=== PATIENT | female | born 1985 | race Caucasian/White ===

== ENCOUNTER 2017-06-17 15:20 | Emergency (ER) | payer OTHER ==
[2017-06-17 15:41] VITALS: BP 141/78; PULSE 74; RESP 18; TEMP 99.4
--- NOTE | 2017-06-17 16:04 | ED ---
Lower Extremity Injury HPI - General Chief Complaint: Extremity Injury, Lower Stated Complaint: Sunburn Time Seen by Provider: 06/17/17 15:45 Source: patient, RN notes reviewed Mode of arrival: ambulatory - History of Present Illness Initial Comments: 31-year-old female presents emergency Department chief complaint sunburn. Patient states she went down on the floor down and states that [place] on [place] 6 hours. Patient states she's had some screening her but she has severe casillas to her legs. Patient states her legs are swollen. Patient states that she has not noted any severe blister but states it is very red. She has been using aloe [id number] no other medications. Patient denies any fever or chills. Patient states that she cannot work because of pain. Patient denies any other areas of burning on the legs. - Related Data Previous Rx's Medication Instructions Recorded Amoxicillin 500 mg PO Q8H #30 capsule 04/04/15 Hydrocodone/Acetaminophen [[place] 1 tab PO Q6HR PRN #10 tab 06/17/17 5-325] Ibuprofen [Motrin] 600 mg PO Q8HR PRN #30 tab 06/17/17 Allergies Allergy/AdvReac Type Severity Reaction Status Date / Time codeine phosphate Allergy Unknown Rash/Hives Verified 06/17/17 15:41 [From Tylenol-Codeine #3] latex Allergy Unknown Rash/Hives Verified 06/17/17 15:41 codeine Allergy Rash/Hives Verified 06/17/17 15:41 Review of Systems ROS Statement: Those systems with pertinent positive or pertinent negative responses have been documented in the HPI. ROS Other: All systems not noted in ROS Statement are negative. Past Medical History Past Medical History: No Reported History Additional Past Medical History / Comment(s): Tennis Elbow History of Any Multi-Drug Resistant Organisms: None Reported Past Surgical History: Appendectomy, Cholecystectomy, Hysterectomy, Tubal Ligation Additional Past Surgical History / Comment(s): tubal Past Psychological History: No Psychological Hx Reported Smoking Status: Former smoker Past Alcohol Use History: Occasional Past Drug Use History: None Reported General Exam General appearance: alert, in no apparent distress Respiratory exam: Present: normal lung sounds bilaterally. Absent: respiratory distress, wheezes, rales, rhonchi, stridor Cardiovascular Exam: Present: regular rate, normal rhythm, normal heart sounds. Absent: systolic murmur, diastolic murmur, rubs, gallop, clicks Skin exam: Present: warm, dry, intact, normal color, other (Extensive first- degree burn on the anterior surface of the lower legs from the proximal thighs of the ankles no blistering noted). Absent: rash Course Vital Signs 06/17/17 15:35 Temperature 99.4 F Pulse Rate 74 Respiratory 18 Rate Blood Pressure 141/78 O2 Sat by Pulse 99 Oximetry Medical Decision Making - Medical Decision Making 29-year-old female presented for prescribed casillas of bilateral lower extremity swelling. Patient is advised of the treatment is ibuprofen and continue with gentle motion. Patient said that she cannot tolerate the pain. Patient will be given a short course of narcotic pain medication. Patient does have an ALLERGY codeine but states that she has taken the pain medication the past. Disposition Clinical Impression: First degree sunburn Disposition: HOME SELF-CARE Condition: Stable Instructions: Sunburn (ED) Additional Instructions: Please return to the Emergency Department if symptoms worsen or any other concerns. Prescriptions: Hydrocodone/Acetaminophen [[place] 5-325] 1 tab PO Q6HR PRN #10 tab PRN Reason: Pain Ibuprofen [Motrin] 600 mg PO Q8HR PRN #30 tab PRN Reason: Pain Referrals: Bryant Wagner Jr, [Primary Care Provider] - 1-2 days Time of Disposition: 16:04
== END 2017-06-17 16:05 | disposition home or self-care (01) ==
LOC: EC 15:20
DX: L55.0 Sunburn of first degree (principal); Z87.891 Personal history of nicotine dependence; Z88.5 Allergy status to narcotic agent; Z91.040 Latex allergy status
CPT/HCPCS: 99283

== ENCOUNTER 2018-02-23 09:14 | Emergency (ER) | payer OTHER ==
[2018-02-23 09:29] VITALS: RESP 18
[2018-02-23] MEDS ORDERED: SODIUM CHLORIDE 0.9% 2,000 ML IV STA (10:01)
[2018-02-23] MEDS ORDERED: ONDANSETRON 4 MG/2 ML VIAL IVP STA (10:06)
--- NOTE | 2018-02-23 10:13 | ED ---
Nausea/Vomiting/Diarrhea HPI - General Chief complaint: Nausea/Vomiting/Diarrhea Stated complaint: Diarrhea Time Seen by Provider: 02/23/18 09:52 Source: patient, old records reviewed Mode of arrival: ambulatory Limitations: no limitations - History of Present Illness Initial comments: This a 32-year-old female presents emergency Department chief complaint of nausea vomiting diarrhea. Patient states this started late last night early this morning. Patient states symptoms have been continuous of nausea vomiting diarrhea. She denies any melena, hematochezia or hematemesis Denies any fever or chills. Denies any vomiting states she's has mild cramping. No chest pain or shortness of breath. Denies any contacts with some her symptoms. She states it started after eating out at a restaurant last night. Patient's prior cholecystectomy, appendectomy and hysterectomy. Denies any dysuria no hematuria. - Related Data Home Medications Medication Instructions Recorded Confirmed buPROPion XL [Wellbutrin Xl] 150 mg PO DAILY 02/23/18 02/23/18 Allergies Allergy/AdvReac Type Severity Reaction Status Date / Time codeine phosphate Allergy Unknown Rash/Hives Verified 02/23/18 10:30 [From Tylenol-Codeine #3] latex Allergy Unknown Rash/Hives Verified 02/23/18 10:30 codeine Allergy Rash/Hives Verified 02/23/18 10:30 Review of Systems ROS Statement: Those systems with pertinent positive or pertinent negative responses have been documented in the HPI. ROS Other: All systems not noted in ROS Statement are negative. Past Medical History Past Medical History: No Reported History Additional Past Medical History / Comment(s): Tennis Elbow History of Any Multi-Drug Resistant Organisms: None Reported Past Surgical History: Appendectomy, Cholecystectomy, Hysterectomy, Tubal Ligation Additional Past Surgical History / Comment(s): tubal Past Psychological History: No Psychological Hx Reported Smoking Status: Former smoker Past Alcohol Use History: Occasional Past Drug Use History: None Reported General Exam Limitations: no limitations General appearance: alert, in no apparent distress Head exam: Present: atraumatic, normocephalic, normal inspection Eye exam: Present: normal appearance, PERRL, EOMI. Absent: scleral icterus, conjunctival injection, periorbital swelling ENT exam: Present: normal exam, normal oropharynx, mucous membranes moist Neck exam: Present: normal inspection. Absent: tenderness, meningismus, lymphadenopathy Respiratory exam: Present: normal lung sounds bilaterally. Absent: respiratory distress, wheezes, rales, rhonchi, stridor Cardiovascular Exam: Present: normal rhythm, tachycardia, normal heart sounds. Absent: systolic murmur, diastolic murmur, rubs, gallop, clicks GI/Abdominal exam: Present: soft, normal bowel sounds. Absent: distended, tenderness, guarding, rebound, rigid Neurological exam: Present: alert, oriented X3, CN II-XII intact Skin exam: Present: warm, dry, intact, normal color. Absent: rash Course Vital Signs 02/23/18 09:28 Temperature 98.4 F Pulse Rate 112 H Respiratory 18 Rate Blood Pressure 130/75 O2 Sat by Pulse 99 Oximetry Medical Decision Making - Medical Decision Making 32-year-old female presented to ER for nausea vomiting diarrhea. Patient was hydrated with 2 L of fluid. Patient is shown have mild dehydration. Symptoms are consistent with gastroenteritis. Patient discharged with Zofran return parameters discussed. - Lab Data Result diagrams: 02/23/18 10:45 02/23/18 10:45 Lab Results 02/23/18 02/23/18 02/23/18 Range/Units 10:45 10:45 11:45 WBC 11.6 H (3.8-10.6) k/uL RBC 4.93 (3.80-5.40) m/uL Hgb 14.9 (11.4-16.0) gm/dL Hct 44.1 (34.0-46.0) % MCV 89.4 (80.0-100.0) fL MCH 30.2 (25.0-35.0) pg MCHC 33.8 (31.0-37.0) g/dL RDW 12.7 (11.5-15.5) % Plt Count 186 (150-450) k/uL Neutrophils % 90 % Lymphocytes % 3 % Monocytes % 4 % Eosinophils % 2 % Basophils % 0 % Neutrophils # 10.5 H (1.3-7.7) k/uL Lymphocytes # 0.3 L (1.0-4.8) k/uL Monocytes # 0.5 (0-1.0) k/uL Eosinophils # 0.3 (0-0.7) k/uL Basophils # 0.0 (0-0.2) k/uL Sodium 140 (137-145) mmol/L Potassium 4.0 (3.5-5.1) mmol/L Chloride 103 (98-107) mmol/L Carbon Dioxide 23 (22-30) mmol/L Anion Gap 14 mmol/L BUN 15 (7-17) mg/dL Creatinine 0.67 (0.52-1.04) mg/dL Est GFR (CKD-EPI)AfAm >90 (>60 ml/min/1.73 sqM) Est GFR (CKD-EPI)NonAf >90 (>60 ml/min/1.73 sqM) Glucose 115 H (74-99) mg/dL Calcium 9.0 (8.4-10.2) mg/dL Total Bilirubin 0.9 (0.2-1.3) mg/dL AST 18 (14-36) U/L ALT 31 (9-52) U/L Alkaline Phosphatase 47 (38-126) U/L Total Protein 6.9 (6.3-8.2) g/dL Albumin 4.2 (3.5-5.0) g/dL Amylase 51 (30-110) U/L Lipase 59 (23-300) U/L Urine Color Yellow Urine Appearance Clear (Clear) Urine pH 5.5 (5.0-8.0) Ur Specific [place] 1.023 (1.001-1.035) Urine Protein Trace H (Negative) Urine Glucose (UA) Negative (Negative) Urine Ketones 3+ H (Negative) Urine Blood Negative (Negative) Urine Nitrite Negative (Negative) Urine Bilirubin Negative (Negative) Urine Urobilinogen <2.0 (<2.0) mg/dL Ur Leukocyte Esterase Negative (Negative) Disposition Clinical Impression: Dehydration, Gastroenteritis Disposition: HOME SELF-CARE Condition: Stable Instructions: Gastroenteritis (ED) Additional Instructions: Please return to the Emergency Department if symptoms worsen or any other concerns. Is patient prescribed a controlled substance at d/c from ED?: No Referrals: Bryant Wagner Jr, DO [Primary Care Provider] - 1-2 days Time of Disposition: 12:18
[2018-02-23] MEDS ORDERED: KETOROLAC 30 MG/ML 1 ML VIAL IVP STA (10:52)
[2018-02-23 11:01] LABS: Basophils % (A) 0 %; Eosinophils # (A) 0.3 k/uL (0-0.7); Eosinophils % (A) 2 %; HCT 44.1 % (34.0-46.0); HGB 14.9 gm/dL (11.4-16.0); Lymphocytes # (A) 0.3 k/uL (1.0-4.8); Lymphocytes % (A) 3 %; MCH 30.2 pg (25.0-35.0); MCHC 33.8 g/dL (31.0-37.0); MCV 89.4 fL (80.0-100.0); Mean Platelet Volume 8.5; Monocytes # (A) 0.5 k/uL (0-1.0); Monocytes % (A) 4 %; Neutrophils # (A) 10.5 k/uL (1.3-7.7); Neutrophils % (A) 90 %; Platelet Count 186 k/uL (150-450); RBC 4.93 m/uL (3.80-5.40); RDW 12.7 % (11.5-15.5); WBC 11.6 k/uL (3.8-10.6)
[2018-02-23 11:10] LABS: ALT 31 U/L (9-52); AST 18 U/L (14-36); Albumin 4.2 g/dL (3.5-5.0); Alkaline Phosphatase 47 U/L (38-126); Amylase 51 U/L (30-110); Anion Gap 14 mmol/L; Blood Urea Nitrogen 15 mg/dL (7-17); Carbon Dioxide 23 mmol/L (22-30); Chloride 103 mmol/L (98-107); Glucose 115 mg/dL (74-99); Lipase 59 U/L (23-300); Sodium 140 mmol/L (137-145); Total Bilirubin 0.9 mg/dL (0.2-1.3); Total Protein 6.9 g/dL (6.3-8.2)
[2018-02-23 12:09] LABS: Appearance,Urine Clear (Clear); Bilirubin,Urine Negative (Negative); Blood,Urine Negative (Negative); Color,Urine Yellow; Glucose,Urine (UA) Negative (Negative); Ketones,Urine 3+ (Negative); Leukocyte Esterase,Urine Negative (Negative); Nitrite,Urine Negative (Negative); PH, Urine 5.5 (5.0-8.0); Protein,Urine Trace (Negative); Specific Gravity,Urine 1.023 (1.001-1.035); Urobilinogen,Urine <2.0 mg/dL (<2.0)
[2018-02-23 13:06] VITALS: BP 102/55; PULSE 84; TEMP 97.6
== END 2018-02-23 13:06 | disposition home or self-care (01) ==
LOC: EC 09:14
DX: K52.9 Noninfective gastroenteritis and colitis, unspecified (principal); E86.0 Dehydration; Z87.891 Personal history of nicotine dependence; Z90.49 Acquired absence of other specified parts of digestive tract; Z90.710 Acquired absence of both cervix and uterus; Z98.51 Tubal ligation status; Z79.899 Other long term (current) drug therapy; Z88.5 Allergy status to narcotic agent; Z91.040 Latex allergy status
CPT/HCPCS: 36415; 80053; 82150; 83690; 85025; 81003; 99284; 96374; 96375; 96361; J2405; J1885

== ENCOUNTER → 2018-03-05 | Outpatient (CLI) | payer OTHER ==
[2018-03-05 14:30] VITALS: BP 114/78; PULSE 99; RESP 20; TEMP 98.6; BMI 35.7
--- NOTE | 2018-03-05 14:34 | P.HPBAR ---
Bariatric H&P - History & Physicial H&P Date: 03/05/18 History & Physicial: Visit/CC: pursuing sleeve Patient initial contact: Initial weight: 87.18 kg Initial weight in pounds: 192.20 Height: 5 ft 1.5 in Initial BMI: 35.7 Last weight: Current weight: 87.18 kg Current weight in pounds: 192.20 Current BMI: 35.7 [place] body weight (based on NIH guidelines): 48.761 kg Excess body weight loss: 0.0% The patient is a 32 year-old F who presents for Bariatric Assessment. Patient seen today as a new patient for bariatric evaluation. She went to her recent seminar put on by Dr. Maldonado in September of last year. She is interested in sleeve gastrectomy. She has completed her 6 month supervised weight loss. Her heaviest weight was 235. She is currently 192 with a BMI of 35.7. Patient complains of reflux. She also complains of intermittent shortness of breath and depression related to her obesity. No complicating surgical history. Denies dysphagia or DVT. She is a nonsmoker. Review of Systems The patient denies any acute changes in vision or hearing, no dysphagia or odynophagia, no chest pain or shortness of breath, no dysuria or hematuria, no headache, no runny nose, no rectal bleeding or melena, no unexplained weight loss Past Medical History Past Medical History: No Reported History Additional Past Medical History / Comment(s): Tennis Elbow History of Any Multi-Drug Resistant Organisms: None Reported Past Surgical History: Appendectomy, Cholecystectomy, Hysterectomy, Tubal Ligation Additional Past Surgical History / Comment(s): tubal Past Psychological History: No Psychological Hx Reported Smoking Status: Former smoker Past Alcohol Use History: Occasional Past Drug Use History: None Reported Surgical - Exam Vital Signs Temp Pulse Resp BP 98.6 F 99 20 114/78 03/05/18 14:13 03/05/18 14:13 03/05/18 14:13 03/05/18 14:13 Physical exam: General: Well-developed, well-nourished HEENT: Normocephalic, sclerae nonicteric Abdomen: Nontender, nondistended Extremities: No edema Neuro: Alert and oriented Bariatric Assessment & Plan (1) Morbid obesity Narrative/Plan: Patient has been considering sleeve gastrectomy for quite some time. The patient's weight is borderline at 35.7 BMI. The risks, benefits, and expected weight loss with the bariatric procedures were discussed in detail. We'll tentatively move forward with plans for sleeve gastrectomy. We'll schedule for upcoming upper endoscopy. A await psychiatric evaluation and PCP letter. Status: Acute Bariatric Checklist Checklist: Plan: Checklist: EGD: 1. Hiatal hernia: 2. H. Pylori: HgbA1c: Vitamin D: Smoking: Former smoker Primary care physician referral: Dr Wagner Psychiatry clearance: Cardiology clearance: Sleep study: Diet journal: VTE risk score: VTE risk level: Rehab needs at discharge:
== END | disposition home or self-care (01) ==
LOC: BARWHC3 14:00
PROVIDERS: ATTEND Surgery
DX: E66.01 Morbid (severe) obesity due to excess calories (principal); Z68.35 Body mass index [BMI] 35.0-35.9, adult; Z87.891 Personal history of nicotine dependence
CPT/HCPCS: 99201

== ENCOUNTER → 2018-04-27 | Outpatient (CLI) | payer OTHER ==
[2018-04-27 15:04] LABS: HCT 42.8 % (34.0-46.0); HGB 14.2 gm/dL (11.4-16.0); MCH 30.8 pg (25.0-35.0); MCHC 33.1 g/dL (31.0-37.0); MCV 93.1 fL (80.0-100.0); Mean Platelet Volume 7.5; Platelet Count 227 k/uL (150-450); RDW 12.9 % (11.5-15.5); WBC 5.9 k/uL (3.8-10.6)
[2018-04-27 15:21] LABS: ALT 30 U/L (9-52); AST 15 U/L (14-36); Albumin 3.9 g/dL (3.5-5.0); Alkaline Phosphatase 42 U/L (38-126); Anion Gap 9 mmol/L; Blood Urea Nitrogen 12 mg/dL (7-17); Carbon Dioxide 28 mmol/L (22-30); Chloride 103 mmol/L (98-107); Glucose 72 mg/dL (74-99); Potassium 4.2 mmol/L (3.5-5.1); Sodium 140 mmol/L (137-145); Total Bilirubin 0.2 mg/dL (0.2-1.3); Total Protein 6.6 g/dL (6.3-8.2)
[2018-04-27 15:35] LABS: T4, Free (Free Thyroxine) 0.89 ng/dL (0.78-2.19)
[2018-04-27 18:45] LABS: Vitamin D 25 Hydroxy 27.4 ng/mL (30.0-100.0)
[2018-04-27 18:54] LABS: Folate, Serum 12.3 ng/mL
[2018-04-27 21:31] LABS: Hemoglobin A1C 4.8 % (4.0-6.0)
== END | disposition home or self-care (01) ==
LOC: LABWHC1 14:35
PROVIDERS: ATTEND Surgery
DX: E55.9 Vitamin D deficiency, unspecified (principal); F41.1 Generalized anxiety disorder; K90.89 Other intestinal malabsorption; E66.01 Morbid (severe) obesity due to excess calories
CPT/HCPCS: 36415; 80053; 82306; 82607; 82746; 83036; 83540; 84425; 84439; 84443; 85027; 93005

== ENCOUNTER → 2019-03-09 | Outpatient (CLI) | payer OTHER ==
[2019-03-09 14:21] VITALS: BP 113/82; PULSE 105; RESP 16; TEMP 98.7; BMI 37.3
--- NOTE | 2019-03-09 14:52 | P.BASOAP ---
Subjective Progress Note Date: 03/09/19 Principal diagnosis: Morbid obesity Patient last seen in February of last year. Patient apparently had a lot of expenses last year and decided not to have her sleeve gastrectomy because of the time it would require away from work. Since that time the patient has gained 10 pounds. She has not had her preoperative upper endoscopy done thus far. No changes to her history and physical. Objective - Vital Signs Vital signs: Vital Signs Temp 98.7 F 03/09/19 14:17 Pulse 105 H 03/09/19 14:17 Resp 16 03/09/19 14:17 BP 113/82 03/09/19 14:17 Pulse Ox Intake & Output 03/08/19 03/09/19 03/09/19 18:59 06:59 18:59 Weight 91.172 kg - Exam Abdomen: Soft, nontender, nondistended Assessment/Plan (1) Morbid obesity Narrative/Plan: We'll plan preoperative upper endoscopy. I did review the surgical consent form in detail with the patient. All questions answered. Patient is interested in proceeding with sleeve gastrectomy in the near future. We'll tentatively plan April. Preoperative lab work ordered. Plan: Date: 03/09/19 Initial Weight: 87.18 kg Initial BMI: 35.7 Current Weight: 91.172 kg Current BMI: 37.3 Type of Surgery: Total Volume in Band: Previous Volume: Volume Removed: Volume Added: Band Size:
== END | disposition home or self-care (01) ==
LOC: BARWHC3 13:51
PROVIDERS: ATTEND Surgery
DX: E66.01 Morbid (severe) obesity due to excess calories (principal); Z68.37 Body mass index [BMI] 37.0-37.9, adult
CPT/HCPCS: 99211

== ENCOUNTER → 2019-03-12 | Outpatient (CLI) | payer OTHER ==
[2019-03-12 12:07] LABS: HCT 41.8 % (34.0-46.0); HGB 14.3 gm/dL (11.4-16.0); MCH 31.4 pg (25.0-35.0); MCHC 34.3 g/dL (31.0-37.0); MCV 91.5 fL (80.0-100.0); Mean Platelet Volume 8.3; Platelet Count 221 k/uL (150-450); RBC 4.57 m/uL (3.80-5.40); RDW 13.6 % (11.5-15.5); WBC 7.2 k/uL (3.8-10.6)
[2019-03-12 18:55] LABS: Iron Saturation 20.39 (12.00-45.00)
[2019-03-12 18:58] LABS: Albumin 4.4 g/dL (3.80-4.90); Albumin/Globulin Ratio 1.91 (1.60-3.17); Anion Gap 8.6 mmol/L (4.00-12.00); Calcium 9.4 mg/dL (8.7-10.3); Carbon Dioxide 26.4 mmol/L (21.6-31.8); Globulin 2.3 g/dL (1.6-3.3); Potassium 4.2 mmol/L (3.5-5.5); Total Bilirubin 0.5 mg/dL (0.2-1.2); Total Protein 6.7 g/dL (6.2-8.2)
[2019-03-12 19:05] LABS: Vitamin D 25 Hydroxy 57.8 ng/mL (30.0-100.0)
== END | disposition home or self-care (01) ==
LOC: LABWHC1 10:56
PROVIDERS: ATTEND Surgery
DX: D50.8 Other iron deficiency anemias (principal); E55.9 Vitamin D deficiency, unspecified; E66.01 Morbid (severe) obesity due to excess calories
CPT/HCPCS: 36415; 80053; 82306; 82607; 83540; 83550; 84425; 85027

== ENCOUNTER 2019-03-24 11:18 | Day surgery (SDC) | payer OTHER ==
[2019-03-18 15:58] VITALS: BMI 36.4
[~2019-03-24 11:18] MED LIST: LACTATED RINGERS 1,000 ML IV SCH; LIDOCAINE 1% 20 ML VIAL (10MG/ML) FOR IV START INTRADERMA PRN
[2019-03-24 11:35] VITALS: RESP 16; TEMP 97.4
[2019-03-24] MEDS ORDERED: PROPOFOL 10 MG/ML 20 ML VIAL IV ONE (12:56)
[2019-03-24] MEDS ORDERED: LIDOCAINE 1% INJ 10MG/ML (20 ML MDV) ONE (12:56)
--- NOTE | 2019-03-24 12:58 | P.GSHP ---
History of Present Illness H&P Date: 03/24/19 Chief Complaint: GERD Patient here today for upper endoscopy. Patient has mild reflux. Being worked up for sleeve gastrectomy as well. No dysphagia. Past Medical History Past Medical History: No Reported History Additional Past Medical History / Comment(s): hx of Tennis Elbow History of Any Multi-Drug Resistant Organisms: None Reported Past Surgical History: Appendectomy, Cholecystectomy, Hysterectomy, Tubal Ligation, Uterine Ablation Additional Past Surgical History / Comment(s): tubal Past Anesthesia/Blood Transfusion Reactions: No Reported Reaction Smoking Status: Former smoker Medications and Allergies Home Medications Medication Instructions Recorded Confirmed Type buPROPion XL [Wellbutrin Xl] 150 mg PO BID 02/23/18 03/24/19 History Cetirizine HCl [Zyrtec] 10 mg PO DAILY 03/18/19 03/24/19 History Phentermine HCl [Adipex-P] 37.5 mg PO DAILY 03/18/19 03/24/19 History Allergies Allergy/AdvReac Type Severity Reaction Status Date / Time codeine phosphate Allergy Unknown Rash/Hives Verified 03/18/19 15:53 [From Tylenol-Codeine #3] latex Allergy Unknown Rash/Hives Verified 03/18/19 15:53 Surgical - Exam Vital Signs Temp Pulse Resp BP Pulse Ox 97.4 F L 78 16 107/69 98 03/24/19 11:34 03/24/19 11:34 03/24/19 11:34 03/24/19 11:34 03/24/19 11:34 Physical exam: General: Well-developed, well-nourished HEENT: Normocephalic, sclerae nonicteric Abdomen: Nontender, nondistended Extremities: No edema Neuro: Alert and oriented Assessment and Plan (1) GERD (gastroesophageal reflux disease) Narrative/Plan: Will proceed with upper endoscopy Current Visit: Yes Status: Acute Code(s): K21.9 - GASTRO-ESOPHAGEAL REFLUX DISEASE WITHOUT ESOPHAGITIS SNOMED Code(s): 222590446
--- NOTE | 2019-03-24 13:05 | P.PCN ---
Date of Procedure: 03/24/19 Procedure(s) Performed: Preoperative Dx: GERD Postoperative Dx: Small hiatal hernia mild gastritis Procedure: EGD with Bx Anesthesia: Sedation Endoscopist: Dr. Moore Specimens: Antrum Endoscopic Procedure: The patient was on the endoscopy table in the left decubitus position. The Olympus gastroscope was inserted into the oropharynx and passed under direct visualization to the region of the third portion of the duodenum. From that point the scope was slowly withdrawn inspecting all surfaces carefully. There were no neoplastic inflammatory or polypoid lesions throughout the duodenum. The pylorus was widely patent. The stomach was carefully inspected. There was mild gastritis present. A biopsy of the antrum took place to rule out H. pylori. Retroflexion revealed a small sliding hiatal hernia. GE junction was present 1 cm or less above the diaphragmatic hiatus. The esophagus was then carefully examined. There were no neoplastic inflammatory or polypoid lesions throughout the visualized esophagus. The patient was then taken to the recovery room in stable condition per anesthesia guidelines. Recommendations: Await biopsy results. Continue workup for possible sleeve gastrectomy.
[2019-03-24 13:21] VITALS: BP 110/66; PULSE 79
== END 2019-03-24 13:52 | disposition home or self-care (01) ==
LOC: ORWHC2ENDO 11:18
PROVIDERS: ATTEND Surgery
DX: K21.9 Gastro-esophageal reflux disease without esophagitis (principal); K29.50 Unspecified chronic gastritis without bleeding; K44.9 Diaphragmatic hernia without obstruction or gangrene; F41.9 Anxiety disorder, unspecified; E66.9 Obesity, unspecified; Z68.36 Body mass index [BMI] 36.0-36.9, adult; Z87.891 Personal history of nicotine dependence; Z79.899 Other long term (current) drug therapy; Z88.5 Allergy status to narcotic agent; Z91.040 Latex allergy status; Z90.49 Acquired absence of other specified parts of digestive tract; Z90.710 Acquired absence of both cervix and uterus; Z98.51 Tubal ligation status
CPT/HCPCS: 43239; 88305; J2001; J2704

== ENCOUNTER → 2019-04-05 | Outpatient (CLI) | payer OTHER ==
[2019-04-05 14:01] VITALS: BMI 37.2
== END | disposition home or self-care (01) ==
LOC: BARWHC3 08:45
PROVIDERS: ATTEND Surgery
DX: E66.01 Morbid (severe) obesity due to excess calories (principal); Z68.37 Body mass index [BMI] 37.0-37.9, adult
CPT/HCPCS: 97804

== ENCOUNTER 2019-05-21 22:22 | Emergency (ER) | payer OTHER ==
[2019-05-21] MEDS ORDERED: IBUPROFEN 800 MG TAB PO STA (23:42)
[2019-05-21] MEDS ORDERED: ACETAMINOPHEN TAB 500 MG TAB PO STA (23:42)
--- NOTE | 2019-05-22 00:34 | ED ---
Fall HPI - General Chief Complaint: Fall Stated Complaint: Fall Time Seen by Provider: 05/21/19 22:47 Source: patient, RN notes reviewed, old records reviewed Mode of arrival: ambulatory - History of Present Illness Initial Comments: This is a 33-year-old female the ER for evaluation. Patient resents today for evaluation status post fall. Patient is no medical history no change in history. Patient felt on stairs. Patient has posterior buttocks pain. No loss of bowel or bladder no injury noted neurological deficits. Patient is having difficulty pain rating at work today. Patient was sent in by [facility] for evaluation regarding back pain MD Complaint: fall -: hour(s) Fall From: standing When Fall Occurred: 4-6 hours [employer] Fall Witnessed: no Place Fall Occurred: home Loss of Consciousness: none Prolonged Down Time?: no Symptoms Prior to Fall: none Location: pelvis, buttocks Severity: moderate Severity scale (1-10): 5 Quality: stabbing Context: tripped/slipped Associated Symptoms: denies - Related Data Home Medications Medication Instructions Recorded Confirmed buPROPion XL [Wellbutrin Xl] 150 mg PO BID 02/23/18 05/21/19 Phentermine HCl [Adipex-P] 37.5 mg PO DAILY 03/18/19 05/21/19 Previous Rx's Medication Instructions Recorded Naproxen [Naprosyn] 500 mg PO Q12HR PRN #30 tab 05/22/19 Allergies Allergy/AdvReac Type Severity Reaction Status Date / Time codeine phosphate Allergy Unknown Rash/Hives Verified 05/21/19 23:30 [From Tylenol-Codeine #3] latex Allergy Unknown Rash/Hives Verified 05/21/19 23:30 Review of Systems ROS Statement: Those systems with pertinent positive or pertinent negative responses have been documented in the HPI. ROS Other: All systems not noted in ROS Statement are negative. Past Medical History Past Medical History: No Reported History Additional Past Medical History / Comment(s): Tennis Elbow History of Any Multi-Drug Resistant Organisms: None Reported Past Surgical History: Appendectomy, Cholecystectomy, Hysterectomy, Tubal Ligation Additional Past Surgical History / Comment(s): tubal Past Anesthesia/Blood Transfusion Reactions: No Reported Reaction Past Psychological History: No Psychological Hx Reported Smoking Status: Former smoker General Exam - General Exam Comments Initial Comments: Tenderness to coccyx Limitations: no limitations General appearance: alert, in no apparent distress Head exam: Present: atraumatic, normocephalic, normal inspection Eye exam: Present: normal appearance, PERRL, EOMI. Absent: scleral icterus, conjunctival injection, periorbital swelling ENT exam: Present: normal exam, mucous membranes moist Neck exam: Present: normal inspection. Absent: tenderness, meningismus, lymphadenopathy Respiratory exam: Present: normal lung sounds bilaterally. Absent: respiratory distress, wheezes, rales, rhonchi, stridor Cardiovascular Exam: Present: regular rate, normal rhythm, normal heart sounds. Absent: systolic murmur, diastolic murmur, rubs, gallop, clicks GI/Abdominal exam: Present: soft, normal bowel sounds. Absent: distended, tenderness, guarding, rebound, rigid Extremities exam: Present: normal inspection, full ROM, normal capillary refill. Absent: tenderness, pedal edema, joint swelling, calf tenderness Back exam: Present: normal inspection Neurological exam: Present: alert, oriented X3, CN II-XII intact Psychiatric exam: Present: normal affect, normal mood Skin exam: Present: warm, dry, intact, normal color. Absent: rash Course Vital Signs 05/21/19 22:35 Temperature 98.1 F Pulse Rate 101 H Respiratory 18 Rate Blood Pressure 130/75 O2 Sat by Pulse 96 Oximetry - Reevaluation(s) Reevaluation #1: 05/22/19 00:32 Medical record reviewed Reevaluation #2: 05/22/19 00:33 Pain control and patient can ambulate Medical Decision Making - Medical Decision Making 33 female the ER for evaluation status post trip and fall downstairs. Patient significant bruising the coccyx area, no fracture noted. Patient can be discharged home - Radiology Data Radiology results: report reviewed (X-ray lumbosacral, pelvis, coccyx negative for traumatic injury), image reviewed Disposition Clinical Impression: Fall, Coccygeal pain, Back contusion Disposition: HOME SELF-CARE Condition: Good Instructions (If sedation given, give patient instructions): Fall Prevention for Older Adults (ED), Coccyx Injury (ED) Prescriptions: Naproxen [Naprosyn] 500 mg PO Q12HR PRN #30 tab PRN Reason: Pain Is patient prescribed a controlled substance at d/c from ED?: No Referrals: Bryant Wagner Jr, [Primary Care Provider] - 1-2 days
--- NOTE | 2019-05-22 01:01 | XR ---
INDICATION: Pain COMPARISON: None. FINDINGS: AP, lateral, and L5-S1 spot views of the lumbar spine are provided. There are 5 [id number] lumbar vertebrae. There is normal lumbar lordosis, vertebral body height, and alignment. There are minor is congenic degenerative endplate changes at multiple levels. Disc spaces are preserved. There is no evidence of acute fracture or subluxation. IMPRESSION: No acute fracture or subluxation.
--- NOTE | 2019-05-22 01:02 | XR ---
INDICATION: Pain. COMPARISON: None FINDINGS: Single AP view of the pelvis is provided. Sacroiliac joints, hip joints, and pubic symphysis are normally aligned. There is mild osteitis pubis. There is no evidence of acute fracture. IMPRESSION: No fracture or subluxation.
--- NOTE | 2019-05-22 01:03 | XR ---
SACRUM/COCCYX, 3 VIEWS INDICATION: Pain COMPARISON: None FINDINGS: 3 views of the sacrum and coccyx are obtained. Bony structures are intact. Allowing for limitations, no fracture. Bone mineralization is within normal limits. IMPRESSION: No acute fracture.
[2019-05-22 01:21] VITALS: BP 109/73; PULSE 79; RESP 13; TEMP 98
== END 2019-05-22 01:20 | disposition home or self-care (01) ==
LOC: EC 22:22
DX: S30.0XXA Contusion of lower back and pelvis, initial encounter (principal); M53.3 Sacrococcygeal disorders, not elsewhere classified; Z87.891 Personal history of nicotine dependence; Z79.899 Other long term (current) drug therapy; Z88.5 Allergy status to narcotic agent; Z91.040 Latex allergy status; W10.9XXA Fall (on) (from) unspecified stairs and steps, initial encounter; Y92.009 Unspecified place in unspecified non-institutional (private) residence as the place of occurrence of the external cause
CPT/HCPCS: 72100; 72170; 72220; 99284

== ENCOUNTER 2019-10-06 12:21 | Emergency (ER) | payer OTHER ==
[2019-10-06] MEDS ORDERED: diphenhydrAMINE 50 MG/ML 1 ML VIAL IVP STA (13:37)
[2019-10-06] MEDS ORDERED: SODIUM CHLORIDE 0.9% 2,000 ML IV STA (13:37)
[2019-10-06] MEDS ORDERED: METOCLOPRAMIDE 5 MG/ML 2 ML VIAL IVP STA (13:37)
[2019-10-06] MEDS ORDERED: KETOROLAC 30 MG/ML 1 ML VIAL IVP STA (13:38)
[2019-10-06 13:51] LABS: Basophils # (A) 0.1 k/uL (0-0.2); Basophils % (A) 0 %; Eosinophils # (A) 0.2 k/uL (0-0.7); Eosinophils % (A) 2 %; HCT 47.6 % (34.0-46.0); HGB 15.9 gm/dL (11.4-16.0); Lymphocytes # (A) 1.3 k/uL (1.0-4.8); Lymphocytes % (A) 10 %; MCH 31.5 pg (25.0-35.0); MCHC 33.4 g/dL (31.0-37.0); MCV 94.3 fL (80.0-100.0); Mean Platelet Volume 8.7; Monocytes # (A) 0.3 k/uL (0-1.0); Monocytes % (A) 3 %; Neutrophils # (A) 10.6 k/uL (1.3-7.7); Neutrophils % (A) 84 %; Platelet Count 249 k/uL (150-450); RBC 5.05 m/uL (3.80-5.40); RDW 12.7 % (11.5-15.5); WBC 12.6 k/uL (3.8-10.6)
[2019-10-06 13:59] LABS: ALT 26 U/L (9-52); AST 19 U/L (14-36); African American GFR (CKD) >90 (>60 ml/min/1.73 sqM); Albumin 4.5 g/dL (3.5-5.0); Alkaline Phosphatase 54 U/L (38-126); Anion Gap 10 mmol/L; Blood Urea Nitrogen 12 mg/dL (7-17); Calcium 9.4 mg/dL (8.4-10.2); Carbon Dioxide 25 mmol/L (22-30); Chloride 108 mmol/L (98-107); Glucose 98 mg/dL (74-99); Non-African American GFR(CKD) >90 (>60 ml/min/1.73 sqM); Potassium 4.1 mmol/L (3.5-5.1); Sodium 143 mmol/L (137-145); Total Bilirubin 0.6 mg/dL (0.2-1.3); Total Protein 7.6 g/dL (6.3-8.2)
[2019-10-06 14:16] VITALS: RESP 16
[2019-10-06 15:25] LABS: Appearance,Urine Turbid (Clear); Bacteria,Urine Rare /hpf; Bilirubin,Urine Negative (Negative); Blood,Urine Negative (Negative); Calcium Oxalate Crystals,Urine Many /hpf; Color,Urine Yellow; Glucose,Urine (UA) Negative (Negative); Ketones,Urine Trace (Negative); Leukocyte Esterase,Urine Negative (Negative); Mucus,Urine Many /hpf; Nitrite,Urine Negative (Negative); PH, Urine 5.5 (5.0-8.0); Protein,Urine Trace (Negative); Specific Gravity,Urine 1.023 (1.001-1.035); Urobilinogen,Urine <2.0 mg/dL (<2.0)
[2019-10-06] MEDS ORDERED: ONDANSETRON 4 MG ODT STARTER PACK 2 TAB BTL PO STA (15:30)
--- NOTE | 2019-10-06 15:33 | ED ---
General Adult HPI - General Chief complaint: Abdominal Pain Stated complaint: vomiting Source: patient Mode of arrival: ambulatory Limitations: no limitations - History of Present Illness Initial comments: The patient is a 34-year-old female with no past history who presents to the emergency room with reported nausea, vomiting and diarrhea since 3 AM. She states that she's had multiple episodes of nonbloody, nonbilious vomiting. States that she cannot without any water. Also admits to loose watery stools. Denies melanotic stools or hematochezia. No hematemesis. Denies eating any tainted foods. No sick contacts with similar symptoms. No recent travel. Denies recent antibiotic use. No abdominal pain. Denies dysuria, hematuria or difficulty voiding. No abnormal vaginal bleeding or discharge. She has had a hysterectomy and therefore no concern for . Has not taken any medications for her symptoms. There are no other alleviating, precipitating or modifying factors - Related Data Home Medications Medication Instructions Recorded Confirmed buPROPion XL [Wellbutrin Xl] 150 mg PO BID 02/23/18 05/21/19 Phentermine HCl [Adipex-P] 37.5 mg PO DAILY 03/18/19 05/21/19 Previous Rx's Medication Instructions Recorded Naproxen [Naprosyn] 500 mg PO Q12HR PRN #30 tab 05/22/19 Ondansetron Odt [Zofran Odt] 4 mg PO Q8HR PRN #15 tab 10/06/19 Allergies Allergy/AdvReac Type Severity Reaction Status Date / Time codeine phosphate Allergy Unknown Rash/Hives Verified 10/06/19 12:26 [From Tylenol-Codeine #3] latex Allergy Unknown Rash/Hives Verified 10/06/19 12:26 Review of Systems ROS Statement: Those systems with pertinent positive or pertinent negative responses have been documented in the HPI. ROS Other: All systems not noted in ROS Statement are negative. Past Medical History Past Medical History: No Reported History Additional Past Medical History / Comment(s): Tennis Elbow History of Any Multi-Drug Resistant Organisms: None Reported Past Surgical History: Appendectomy, Cholecystectomy, Hysterectomy, Tubal Ligation Additional Past Surgical History / Comment(s): tubal Past Anesthesia/Blood Transfusion Reactions: No Reported Reaction Past Psychological History: Anxiety, Depression Smoking Status: Former smoker Past Alcohol Use History: Occasional Past Drug Use History: Marijuana General Exam Limitations: no limitations Course Vital Signs 10/06/19 10/06/19 10/06/19 12:26 14:15 15:07 Temperature 98 F Pulse Rate 99 83 Respiratory 18 16 16 Rate Blood Pressure 115/83 105/64 O2 Sat by Pulse 99 99 Oximetry 10/06/19 15:50 Temperature 98.2 F Pulse Rate 87 Respiratory 16 Rate Blood Pressure 106/64 O2 Sat by Pulse 98 Oximetry EKG Findings - EKG Comments: EKG Findings:: EKG demonstrates normal sinus rhythm with a ventricular rate of 84. VT interval 160. QRS 94. QTC of 439. No acute ST segment elevations or depressions concerning for ischemic changes Medical Decision Making - Medical Decision Making Upon arrival the patient was placed in room 17. A thorough history and physical exam was performed. The patient has a non-peritoneal abdomen. Peripheral IV was established. The patient is given a 2 L bolus of normal saline and 4 mg of Zofran. X-ray studies were conducted. White blood cell 12.6. CMP unremarkable. Urinalysis shows rare bacteria, trace ketones area and I did reevaluate the patient she states she feels much improved. She'll be given a Zofran starter pack. I also will prescribe the patient Zofran. She is given ice chips and is able to hold them down. The patient be discharged home. Return to the emergency room for any new worsening symptoms. She was discharged home in stable condition - Lab Data Result diagrams: 10/06/19 13:00 10/06/19 13:00 Lab Results 10/06/19 10/06/19 10/06/19 Range/Units 13:00 13:00 15:10 WBC 12.6 H (3.8-10.6) k/uL RBC 5.05 (3.80-5.40) m/uL Hgb 15.9 (11.4-16.0) gm/dL Hct 47.6 H (34.0-46.0) % MCV 94.3 (80.0-100.0) fL MCH 31.5 (25.0-35.0) pg MCHC 33.4 (31.0-37.0) g/dL RDW 12.7 (11.5-15.5) % Plt Count 249 (150-450) k/uL Neutrophils % 84 % Lymphocytes % 10 % Monocytes % 3 % Eosinophils % 2 % Basophils % 0 % Neutrophils # 10.6 H (1.3-7.7) k/uL Lymphocytes # 1.3 (1.0-4.8) k/uL Monocytes # 0.3 (0-1.0) k/uL Eosinophils # 0.2 (0-0.7) k/uL Basophils # 0.1 (0-0.2) k/uL Sodium 143 (137-145) mmol/L Potassium 4.1 (3.5-5.1) mmol/L Chloride 108 H (98-107) mmol/L Carbon Dioxide 25 (22-30) mmol/L Anion Gap 10 mmol/L BUN 12 (7-17) mg/dL Creatinine 0.74 (0.52-1.04) mg/dL Est GFR (CKD-EPI)AfAm >90 (>60 ml/min/1.73 sqM) Est GFR (CKD-EPI)NonAf >90 (>60 ml/min/1.73 sqM) Glucose 98 (74-99) mg/dL Calcium 9.4 (8.4-10.2) mg/dL Total Bilirubin 0.6 (0.2-1.3) mg/dL AST 19 (14-36) U/L ALT 26 (9-52) U/L Alkaline Phosphatase 54 (38-126) U/L Total Protein 7.6 (6.3-8.2) g/dL Albumin 4.5 (3.5-5.0) g/dL Lipase 123 (23-300) U/L Urine Color Yellow Urine Appearance Turbid H (Clear) Urine pH 5.5 (5.0-8.0) Ur Specific [place] 1.023 (1.001-1.035) Urine Protein Trace H (Negative) Urine Glucose (UA) Negative (Negative) Urine Ketones Trace H (Negative) Urine Blood Negative (Negative) Urine Nitrite Negative (Negative) Urine Bilirubin Negative (Negative) Urine Urobilinogen <2.0 (<2.0) mg/dL Ur Leukocyte Esterase Negative (Negative) Calcium Oxalate Crystal Many H (None) /hpf Urine Bacteria Rare H (None) /hpf Urine Mucus Many H (None) /hpf Disposition Clinical Impression: Nausea and vomiting Disposition: HOME SELF-CARE Condition: Stable Instructions (If sedation given, give patient instructions): Dehydration (ED) Additional Instructions: Please follow up with your primary care doctor in 2-4 days. Return to the emergency room for any new or worsening symptoms Prescriptions: Ondansetron Odt [Zofran Odt] 4 mg PO Q8HR PRN #15 tab PRN Reason: Nausea Is patient prescribed a controlled substance at d/c from ED?: No Referrals: Bryant Wagner Jr, DO [Primary Care Provider] - 1-2 days Time of Disposition: 15:35
[2019-10-06 15:55] VITALS: BP 106/64; PULSE 87; TEMP 98.2
== END 2019-10-06 15:50 | disposition home or self-care (01) ==
LOC: EC 12:21
DX: R11.2 Nausea with vomiting, unspecified (principal); R10.9 Unspecified abdominal pain; R19.7 Diarrhea, unspecified; F41.9 Anxiety disorder, unspecified; F32.9 Major depressive disorder, single episode, unspecified; Z79.899 Other long term (current) drug therapy; Z88.5 Allergy status to narcotic agent; Z88.6 Allergy status to analgesic agent; Z91.040 Latex allergy status; Z87.891 Personal history of nicotine dependence
CPT/HCPCS: 36415; 93005; 80053; 83690; 85025; 81001; 99284; 96374; 96375 ×2; 96361 ×2; J1200; J2765; J1885; S0119

== ENCOUNTER 2020-06-18 10:47 | Emergency (ER) | payer OTHER ==
[2020-06-18 10:55] VITALS: BP 106/74; PULSE 71; RESP 18; TEMP 98
[2020-06-18] MEDS ORDERED: methylPREDNISolone SOD SUCCI 125 MG/2 ML VIAL IM ONE (11:17)
--- NOTE | 2020-06-18 11:25 | ED ---
Skin/Abscess/FB HPI - General Chief complaint: Skin/Abscess/Foreign Body Stated complaint: lip swelling/poss infection Time Seen by Provider: 06/18/20 10:56 Source: patient Mode of arrival: ambulatory Limitations: no limitations - History of Present Illness Initial comments: patient is a 34-year-old female presenting to emergency Department with complai nts of lip swelling that she noticed this morning. patient states she noticed a pimple on the left side of her top lip yesterday, she popped it and didn't think anything of it. Patient [place] She did notice some mild swelling to the lip last night but then when she woke up this morning she noticed a lot more swelling. The area is not warm or red. She den ies any fever or chills. She states there is been no drainage from the small pimple. She has no further complaints at this time. Upon arrival to the ER, her vitals are stable. - Related Data Home Medications Medication Instructions Recorded Confirmed buPROPion XL [Wellbutrin Xl] 150 mg PO BID 02/23/18 05/21/19 Phentermine HCl [Adipex-P] 37.5 mg PO DAILY 03/18/19 05/21/19 Previous Rx's Medication Instructions Recorded Naproxen [Naprosyn] 500 mg PO Q12HR PRN #30 tab 05/22/19 Ondansetron Odt [Zofran Odt] 4 mg PO Q8HR PRN #15 tab 10/06/19 predniSONE [Deltasone] 20 mg PO DAILY 4 Days #4 tab 06/18/20 Allergies Allergy/AdvReac Type Severity Reaction Status Date / Time codeine phosphate Allergy Unknown Rash/Hives Verified 06/18/20 10:55 [From Tylenol-Codeine #3] latex Allergy Unknown Rash/Hives Verified 06/18/20 10:55 Review of Systems ROS Statement: Those systems with pertinent positive or pertinent negative responses have been documented in the HPI. ROS Other: All systems not noted in ROS Statement are negative. Past Medical History Past Medical History: No Reported History Additional Past Medical History / Comment(s): Tennis Elbow History of Any Multi-Drug Resistant Organisms: None Reported Past Surgical History: Appendectomy, Cholecystectomy, Hysterectomy, Tubal Ligation Additional Past Surgical History / Comment(s): tubal Past Anesthesia/Blood Transfusion Reactions: No Reported Reaction Past Psychological History: Anxiety, Depression Smoking Status: Current some day smoker Past Alcohol Use History: Occasional General Exam - General Exam Comments Initial Comments: GENERAL: Patient is well-developed and well-nourished. Patient is nontoxic and in no acute distress. HEAD: Atraumatic, normocephalic. EYES: Pupils equal round and reactive to light, extraocular movements intact, sclera anicteric, conjunctiva are normal. Eyelids were unremarkable. ENT: TMs normal, nares patent, oropharynx clear without exudates. Moist mucous membranes. patient has some mild swelling of the left side of the upper lip, there is a single papule present, there is no surrounding erythema or signs of infection, the area is not painful to the touch, there is no induration or abscess felt. NECK: Normal range of motion, supple without lymphadenopathy or JVD. LUNGS: Unlabored respirations. Breath sounds clear to auscultation bilaterally and equal. No wheezes rales or rhonchi. HEART: Regular rate and rhythm without murmurs, rubs or gallops. ABDOMEN: Soft, nontender, normoactive bowel sounds. No guarding, no rebound. No masses appreciated. : Deferred MUSCULOSKELETAL: Normal extremities with adequate strength and normal range of motion, no pitting or edema. No clubbing or cyanosis. NEUROLOGICAL: Patient is alert and oriented x 3. Normal speech, normal gait. PSYCH: Normal mood, normal affect. SKIN: Warm, Dry, normal turgor, no rashes other than what is listed above. Limitations: no limitations Course Vital Signs 06/18/20 10:52 Temperature 98 F Pulse Rate 71 Respiratory 18 Rate Blood Pressure 106/74 O2 Sat by Pulse 100 Oximetry Medical Decision Making - Medical Decision Making patient is a 34-year-old female here for some mild swelling of her left upper lip started this morning. There is a pimple that she popped yesterday. The area is not erythematous, no pain with palpation, no abscess felt. This does not look infected. I will give patient a dose of steroids here in the ER and recommended topical antibiotics. She may also apply ice to the area. I did give her a short course of steroids continue if swelling persists. She will follow-up with her PCP in 1-3 days. She is stable for discharge. Return parameters were discussed with the patient she verbalized understanding. Disposition Clinical Impression: Swollen lip Disposition: HOME SELF-CARE Condition: Stable Instructions (If sedation given, give patient instructions): Edema (ED) Additional Instructions: Please return to the Emergency Department if symptoms worsen or any other concerns. Please return to the Emergency Department if symptoms worsen or any other concerns. May apply ice to the area, topical antibiotics. Take prescription as prescribed. Follow-up with PCP in 1-3 days. Prescriptions: predniSONE [Deltasone] 20 mg PO DAILY 4 Days #4 tab Is patient prescribed a controlled substance at d/c from ED?: No Referrals: Bryant Wagner Jr, DO [Primary Care Provider] - 1-2 days
== END 2020-06-18 11:34 | disposition home or self-care (01) ==
LOC: EC 10:47
DX: R22.0 Localized swelling, mass and lump, head (principal); F41.9 Anxiety disorder, unspecified; F32.9 Major depressive disorder, single episode, unspecified; F17.200 Nicotine dependence, unspecified, uncomplicated; Z79.899 Other long term (current) drug therapy; Z88.5 Allergy status to narcotic agent; Z91.040 Latex allergy status
CPT/HCPCS: 99283; 96372; J2930

== ENCOUNTER 2021-01-28 20:15 | Emergency (ER) | payer OTHER ==
[2021-01-28 20:32] VITALS: BP 128/81; PULSE 107; RESP 18; TEMP 98.7
--- NOTE | 2021-01-28 22:40 | ED ---
General Adult HPI - General Chief complaint: Dizziness Stated complaint: Syncope Time Seen by Provider: 01/28/21 22:03 Source: patient Mode of arrival: ambulatory Limitations: no limitations - History of Present Illness Initial comments: This patient is a 35-year-old woman who presents with a constellation of symptoms that she is concerned may represent coronavirus infection. She has had recent exposure to infected person. Approximately 3 days ago she started having myalgias mainly of the shoulders and upper extremities. She states that that lasted for a little over a day and then following that she started having a little bit of vertiginous symptoms, mainly when she would get up from seated position or states sometimes with turning. Patient has also had a little bit of frontal headache and a mild cough, nonproductive. She has not noted fever or chills. No vomiting or diarrhea. -: days(s) Location: head Quality: aching Consistency: constant Improves with: none Worsens with: none Associated Symptoms: cough, headaches Treatments Prior to Arrival: none - Related Data Home Medications Medication Instructions Recorded Confirmed buPROPion XL [Wellbutrin Xl] 150 mg PO BID 02/23/18 05/21/19 Phentermine HCl [Adipex-P] 37.5 mg PO DAILY 03/18/19 05/21/19 Previous Rx's Medication Instructions Recorded Naproxen [Naprosyn] 500 mg PO Q12HR PRN #30 tab 05/22/19 Ondansetron Odt [Zofran Odt] 4 mg PO Q8HR PRN #15 tab 10/06/19 predniSONE [Deltasone] 20 mg PO DAILY 4 Days #4 tab 06/18/20 Meclizine [Antivert] 25 mg PO TID PRN #15 tab 01/28/21 Allergies Allergy/AdvReac Type Severity Reaction Status Date / Time codeine phosphate Allergy Unknown Rash/Hives Verified 01/28/21 20:29 [From Tylenol-Codeine #3] latex Allergy Unknown Rash/Hives Verified 01/28/21 20:29 Review of Systems ROS Statement: Those systems with pertinent positive or pertinent negative responses have been documented in the HPI. ROS Other: All systems not noted in ROS Statement are negative. Constitutional: Denies: fever, chills, weakness Eyes: Denies: eye pain, vision change ENT: Denies: ear pain, throat pain, congestion Respiratory: Reports: cough. Denies: dyspnea, wheezes Cardiovascular: Denies: chest pain, palpitations, orthopnea, edema, syncope Gastrointestinal: Denies: abdominal pain, vomiting, diarrhea Genitourinary: Denies: dysuria, hematuria Musculoskeletal: Denies: back pain Skin: Denies: rash Neurological: Reports: headache, vertigo. Denies: weakness, numbness, paresthesias, confusion Past Medical History Past Medical History: No Reported History Additional Past Medical History / Comment(s): Tennis Elbow History of Any Multi-Drug Resistant Organisms: None Reported Past Surgical History: Appendectomy, Cholecystectomy, Hysterectomy, Tubal Ligation Additional Past Surgical History / Comment(s): tubal Past Anesthesia/Blood Transfusion Reactions: No Reported Reaction Past Psychological History: Anxiety, Depression Smoking Status: Current some day smoker Past Alcohol Use History: Occasional Past Drug Use History: None Reported General Exam Limitations: no limitations General appearance: alert, in no apparent distress Head exam: Present: atraumatic, normocephalic Eye exam: Present: normal appearance, PERRL, EOMI. Absent: scleral icterus, conjunctival injection, nystagmus ENT exam: Present: normal oropharynx, mucous membranes moist Neck exam: Present: normal inspection, full ROM. Absent: tenderness, meningismus Respiratory exam: Present: normal lung sounds bilaterally. Absent: respiratory distress, wheezes, rales, rhonchi, stridor Cardiovascular Exam: Present: regular rate, normal rhythm, normal heart sounds. Absent: systolic murmur, diastolic murmur, rubs, gallop GI/Abdominal exam: Present: soft. Absent: tenderness, guarding, rebound Extremities exam: Present: normal inspection, normal capillary refill. Absent: pedal edema, calf tenderness Back exam: Present: normal inspection. Absent: CVA tenderness (R), CVA tenderness (L) Neurological exam: Present: alert, CN II-XII intact, normal gait. Absent: motor sensory deficit Skin exam: Present: warm, dry, intact, normal color. Absent: rash Course Vital Signs 01/28/21 20:29 Temperature 98.7 F Pulse Rate 107 H Respiratory 18 Rate Blood Pressure 128/81 O2 Sat by Pulse 95 Oximetry Medical Decision Making - Medical Decision Making Patient is 35-year-old woman with a constellation of symptoms consistent with viral syndrome. The coronavirus swab for PCR is sent. At this point the patient feels like she would like to go home and not have any other workup at this point. Discussed further care and follow-up for vertigo, including that if it does not improve within the next few days she should have additional testing. Discussed appropriate further care and follow-up as well as return parameters. - Lab Data Lab Results 01/28/21 Range/Units 20:35 Coronavirus (PCR) Not Detected (Not Detectd) Disposition Clinical Impression: Viral syndrome Disposition: HOME SELF-CARE Condition: Good Instructions (If sedation given, give patient instructions): Vertigo (ED), Viral Syndrome (ED) Prescriptions: Meclizine [Antivert] 25 mg PO TID PRN #15 tab PRN Reason: Vertigo Is patient prescribed a controlled substance at d/c from ED?: No Referrals: Bryant Wagner Jr, DO [Primary Care Provider] - 1-2 days
== END 2021-01-28 22:59 | disposition home or self-care (01) ==
LOC: EC 20:15
DX: B34.9 Viral infection, unspecified (principal); F41.9 Anxiety disorder, unspecified; F32.9 Major depressive disorder, single episode, unspecified; F17.200 Nicotine dependence, unspecified, uncomplicated; Z20.822 Contact with and (suspected) exposure to COVID-19
CPT/HCPCS: 87635; 99283

== ENCOUNTER → 2024-12-23 | Outpatient (CLI) | payer OTHER ==
--- NOTE | 2024-12-24 08:58 | MM ---
Reason for Exam: Screening (asymptomatic). Patient History: Menarche at age 10. First Full-Term at age 16. Hysterectomy at age 28. Paternal unspecified had breast cancer. Paternal unspecified had breast cancer. Risk Values: Jackie 5 year model risk: 0.4%. NCI Lifetime model risk: 8.0%. Tissue Density: The breasts are heterogeneously dense, which may obscure small masses. Findings: Bilateral asymmetries in the breasts on 2-D imaging. No priors for comparison. Overall Assessment: Incomplete: need additional imaging evaluation, BI-RAD 0 Management: Diagnostic Mammogram of both breasts. [facility] will attempt to contact patient to return for supplemental views and ultrasound if indicated. Patient should continue monthly self-breast exams. A clinical breast exam by your physician is recommended on an annual basis. This exam should not preclude additional follow-up of suspicious palpable abnormalities. Note on Jackie scores and lifetime risk: 1. A Jackie score greater than 3% is considered moderate risk. If this is the case, consider specialist referral to assess eligibility for a risk reducing agent. 2. If overall lifetime risk for the development of breast cancer is 20% or higher, the patient may qualify for future screening with alternating mammogram and breast MRI. [facility], , 12/24/2024 8:56 AM. Electronically signed and approved by: Shade Goldman DO
== END | disposition home or self-care (01) ==
LOC: RADMAMWWP 15:09
PROVIDERS: ATTEND Family Medicine
DX: Z12.31 Encounter for screening mammogram for malignant neoplasm of breast (principal); R92.333 Mammographic heterogeneous density, bilateral breasts; Z80.3 Family history of malignant neoplasm of breast
CPT/HCPCS: 77067

== ENCOUNTER → 2025-01-04 | Outpatient (CLI) | payer OTHER ==
--- NOTE | 2025-01-04 13:16 | MM ---
Reason for Exam: Additional evaluation requested from abnormal screening. Last screening mammogram was performed less than 1 month ago. Patient History: Menarche at age 10. First Full-Term at age 16. Hysterectomy at age 28. Paternal unspecified had breast cancer. Paternal unspecified had breast cancer. Risk Values: Jackie 5 year model risk: 0.4%. NCI Lifetime model risk: 8.0%. Prior Study Comparison: 12/23/2024 Bilateral MG screening mammo w CAD, [place]. Tissue Density: The breasts are heterogeneously dense, which may obscure small masses. Findings: Analyzed By CAD. No evidence for persistent mass or distortion. No skin thickening or suspicious microcalcifications. Overall Assessment: Probably benign, BI-RAD 3 Management: Diagnostic Mammogram of both breasts in 6 months. . Results were given to the patient verbally at the time of exam. Patient should continue monthly self-breast exams. A clinical breast exam by your physician is recommended on an annual basis. This exam should not preclude additional follow-up of suspicious palpable abnormalities. Note on Jackie scores and lifetime risk: 1. A Jackie score greater than 3% is considered moderate risk. If this is the case, consider specialist referral to assess eligibility for a risk reducing agent. 2. If overall lifetime risk for the development of breast cancer is 20% or higher, the patient may qualify for future screening with alternating mammogram and breast MRI. [facility], , 01/04/2025 1:12 PM. Electronically signed and approved by: Ronen Jurado M.D. [facility]
== END | disposition home or self-care (01) ==
LOC: RADMAMWWP 12:39
PROVIDERS: ATTEND Family Medicine
DX: R92.8 Other abnormal and inconclusive findings on diagnostic imaging of breast (principal); R92.333 Mammographic heterogeneous density, bilateral breasts; Z80.3 Family history of malignant neoplasm of breast
CPT/HCPCS: 77062; 77066